=== PATIENT | female | born 1995 | race Caucasian/White ===

== ENCOUNTER 2016-09-05 14:08 | Emergency (ER) | payer OTHER ==
--- NOTE | 2016-09-05 14:38 | EDPHY ---
H & P Stated Complaint: seizure Time Seen by Provider: 09/05/16 14:11 - Personal History LMP (Females 10-55): 1-7 Days Ago Current Tetanus/Diphtheria Vaccine: Yes - Medical/Surgical History Hx Asthma: No Hx Chronic Respiratory Disease: No Hx Diabetes: No Hx Cardiac Disease: No Hx Renal Disease: No Hx Cirrhosis: No Hx Alcoholism: No Hx HIV/AIDS: No Hx Splenectomy or Spleen Trauma: No Other PMH: depression - Social History Smoking Status: Current every day smoker Constitutional: Initial Vital Signs Temperature (C) 36.9 C 09/05/16 14:17 Heart Rate 74 09/05/16 14:17 Respiratory Rate 18 09/05/16 14:17 Blood Pressure 133/77 H 09/05/16 14:17 O2 Sat (%) 96 09/05/16 14:17 O2 Delivery Mode Room Air O2 (L/minute) 2 Medical Decision Making ED Course/Re-evaluation: CHIEF COMPLAINT: Seizure. HISTORY OF PRESENT ILLNESS: The patient is a 20-year-old female with a history of prior seizures who presents after a seizure earlier today. She did not eat at all today and had a seizure while waiting for food in a restaurant. Her boyfriend witnessed the seizure and reports it lasted about 5 minutes. He says her body went stiff and then she fell to the ground convulsing. She denies alcohol or drug use today. She is fatigued but otherwise has no complaints. She did not bite her tongue. Her last CT was in May and was normal. REVIEW OF SYSTEMS: A 10 point review of systems was performed and is negative with the exception of the elements mentioned in the history of present illness. PHYSICAL EXAM: HR, BP, O2 Sat, RR. Temp noted General Appearance: Alert, well hydrated, appropriate, and non-toxic appearing. Head: Atraumatic without scalp tenderness or obvious injury Eyes: Pupils equal, round, reactive to light and accommodation, EOMI, no trauma , no injection. Ears: Clear bilaterally, no perforation, normal landmarks Nose: Atraumatic, no rhinorrhea, clear. Throat: There is no erythema or exudates, no lesions, normal tonsils, mucus membranes moist. Neck: Supple, 2+ carotid upstroke, nontender, no lymphadenopathy. Respiratory: No retractions, no distress, no wheezes, and no accessory muscle use. Lungs are clear to auscultation bilaterally. Cardiovascular: Regular rate and rhythm, no murmurs, rubs, or gallops. Bilateral carotid, radial, dorsalis pedis, and posterior tibial pulses intact. Good capillary refill all extremities. Gastrointestinal: Abdomen is soft, nontender, non-distended, no masses, no rebound, no guarding, no peritoneal signs. Musculoskeletal: Normal active ROM of all extremities, atraumatic. Neurological: Alert, appropriate, and interactive. The patient has normal DTRs and non-focal cranial nerves, motor, sensory, and cerebellar exam. Skin: No rashes, good turgor, no nodules on palpation. Past medical history:Depression, seizures. Family history:Non-contributory. Social history:Here with boyfriend. DIFFERENTIAL DIAGNOSIS: The differential diagnosis for the patient's seizure included but was not limited to electrolyte abnormality, alcohol withdrawal, medication noncompliance , head injury, [employer]IAN structural abnormality, and break through seizure. MEDICAL DECISION MAKING: This is a 20-year-old female who presents after a seizure today. She has a history of seizures, mostly drug-induced, and her last CT was in May that was normal. She has no complaints from the seizure today. She is a little fatigued but otherwise atraumatic. She did not bite her tongue. I do not believe imaging is warranted today. We will check basic labs and an ISTAT. ISTAT and test are negative. I discussed these results with her. She is feeling better and is ready to go home. I answered all of her questions. She is comfortable with the plan. - Data Points Laboratory Results: 09/05/16 09/05/16 14:55 14:54 POC Hgb 15.0 gm/dL (12.3-15.9) POC Hct 44 % (35.5-47.5) POC Sodium 138 mEq/L (134-144) POC Potassium 4.2 mEq/L (3.3-5.0) POC Chloride 102 mEq/L (96-108) POC BUN 10 mg/dL (7-23) POC Creatinine 0.7 mg/dL (0.6-1.2) POC Glucose 96 mg/dL (70-100) Beta HCG, Qual NEGATIVE Medications Given: Discontinued Medications Sodium Chloride (Ns) 1,000 mls @ 0 mls/hr IV ONCE ONE PRN Reason: Wide Open Stop: 09/05/16 15:06 Last Admin: 09/05/16 15:05 Dose: 1,000 mls Ondansetron HCl (Zofran) 4 mg IVP EDNOW ONE Stop: 09/05/16 15:06 Last Admin: 09/05/16 15:05 Dose: 4 mg Point of Care Test Results: 09/05/16 14:54 POC Sodium 138 POC Potassium 4.2 POC Chloride 102 POC BUN 10 POC Creatinine 0.7 POC Glucose 96 Departure - Departure Disposition: Home, Routine, Self-Care Clinical Impression: Seizure Condition: Good Instructions: Recurrent Seizures in Adults (ED) Additional Instructions: Call Dr. Dias, neurology, today to set up a follow up appointment. Return to the emergency department for any serious worsening of condition. Referrals: Rolando Dias MD [Medical Doctor] - As per Instructions Report Scribed for: Omar Perales Report Scribed by: Ayo Kraus Date of Report: 09/05/16 Time of Report: 14:38
[2016-09-05] MEDS ORDERED: ONDANSETRON 4 MG/2 ML VIAL ONE (15:01)
[2016-09-05] MEDS ORDERED: ONDANSETRON 4 MG/2 ML VIAL IVP ONE (15:05)
[2016-09-05] MEDS ORDERED: NS 1,000 ML IV ONE (15:05)
[2016-09-05 16:03] VITALS: BP 108/72; PULSE 86; RESP 18; TEMP 98.6; O2SAT 96
== END 2016-09-05 16:03 | disposition home or self-care (01) ==
DX: G40.909 Epilepsy, unspecified, not intractable, without status epilepticus (principal); F17.200 Nicotine dependence, unspecified, uncomplicated
CPT/HCPCS: 82947-QW; 96374; J2405